=== PATIENT | male | born 1990 | race African-American/Black ===

== ENCOUNTER 2024-03-15 17:18 | Emergency (ER) | payer SELFPAY ==
[2024-03-15] MEDS: traMADol 50 MG Tab PO STA (19:17)
== END 2024-03-15 19:18 | disposition home or self-care (01) ==
LOC: MW.ED 17:18
DX: R25.2 Cramp and spasm (principal); Z75.8 Other problems related to medical facilities and other health care
CPT/HCPCS: 93005; 99283; A9270; 93010